=== PATIENT | female | born 2005 | race Caucasian/White ===

== ENCOUNTER → 2023-01-02 08:51 | Outpatient (BNVA) | payer OTHER, SELFPAY | PROVIDERS: Family Provider Family Medicine; PCP Family Medicine; Visit Provider Family Medicine | DX: Z34.90 Encounter for supervision of normal pregnancy, unspecified, unspecified trimester (principal) | CPT/HCPCS: 80307; 81000; 81025; 84144; 84443; 85025; 86592; 86762; 86803; 86850; 86900; 87086; 87340; 87491; 87591; 87624; 87661; 87806 ==

== ENCOUNTER → 2023-01-03 09:44 | Outpatient (BNVA) | payer OTHER, SELFPAY | PROVIDERS: Family Provider Family Medicine; PCP Family Medicine; Visit Provider Family Medicine | DX: Z34.90 Encounter for supervision of normal pregnancy, unspecified, unspecified trimester (principal) | CPT/HCPCS: 87491; 87512; 87591; 87661; 87799 ==

== ENCOUNTER 2023-01-12 12:20 | Outpatient (CLI) | payer OTHER, SELFPAY ==
--- NOTE | 2023-01-12 12:45 | US_ITS ---
WS: [email or web address] ULTRASOUND EARLY TECHNIQUE: Transabdominal sonography of the pelvis was performed. Followed by transvaginal sonography to better evaluate the uterus and ovaries. CLINICAL INFORMATION: Dating US in the next 1-2 weeks LMP: 11/11/2022 Beta hCG: Unknown. COMPARISON: None. FINDINGS: Closed cervix measures 3.9 cm UTERUS AND GESTATIONAL SAC Intrauterine gestations: Single live intrauterine gestation with pole and gestational sac. Estimated gestational age: 8w6d Estimated date of delivery 08/18/2023 Yolk sac: 0.5 cm. [place] rump length (CRL): 2.2 cm. heart motion: 167 BPM. Subchorionic hemorrhage: None. OVARIES Right ovary: Normal. Left ovary: Normal. FREE FLUID None. IMPRESSION: 1. Single live intrauterine with pole. 2. Cervix is long and closed. 3. Estimated gestational age; 8w6d 4. Estimated delivery 08/18/2023
== END 2023-01-12 12:21 | disposition home or self-care (01) ==
PROVIDERS: PCP Family Medicine; Visit Provider Family Medicine
DX: Z34.01 Encounter for supervision of normal first pregnancy, first trimester (principal); Z3A.08 8 weeks gestation of pregnancy
CPT/HCPCS: 76801

== ENCOUNTER 2023-04-06 08:55 | Outpatient (CLI) | payer OTHER, SELFPAY ==
--- NOTE | 2023-04-06 09:00 | US_ITS ---
WS: [email or web address] OBSTETRICAL ULTRASOUND COMPLETE HISTORY: Anatomy US - ABout 8 weeks from now COMPARISON: 01/12/2023 Single intrauterine gestation in breech presentation. Cervix is Closed and normal length. Cervical length is 4.2 cm. Normal amount of amniotic fluid surrounds the fetus. Placenta: Posterior, no previa or abruption. Placenta grade 1 Heart: 157 BPM. Four chambers are identified. RIGHT and LEFT outflow tracts are unremarkable. Anatomy: Intracranial structures and spine are normal. kidneys, stomach and urinary bladd er are unremarkable. Abdominal wall, three-vessel cord and cord insertion site are normal. 4 extremities are present. profile: Unremarkable. Gender: Not imaged. measurements: BPD = 4.3 cm = 19w1d; HC = 17.6 cm = 20w1d; AC = 14.2 cm = 19w4d; FL = 3.4 cm = 20w4d; EFW: 324 g. Biometry is internally concordant. AGA by ultrasound: 20w0d SARAH by ultrasound: 08/24/2023 IMPRESSION: 1. Single intrauterine gestation of 20w0d with an SARAH of 08/24/2023. Appropriate growth since the rst trimester ultrasound. 2. Unremarkable screening survey of anatomy.
== END 2023-04-06 08:56 | disposition home or self-care (01) ==
LOC: RAD 08:55
PROVIDERS: PCP Family Medicine; Visit Provider Family Medicine
DX: Z34.00 Encounter for supervision of normal first pregnancy, unspecified trimester (principal)
CPT/HCPCS: 76805

== ENCOUNTER 2023-04-24 20:32 | Outpatient (CLI) | payer OTHER, SELFPAY ==
[2023-04-24] VITALS (12 sets, daily range): BP systolic 93–123; BP diastolic 54–67; PULSE 80–93; RESP 15–18; TEMP 36.7; BMI 19.9
--- NOTE | 2023-04-24 20:58 | USR_ITS ---
PROCEDURE INFORMATION: Exam: US , Limited Exam date and time: 04/24/2023 11:24 PM Age: 17 years old Clinical indication: Other: Lt flank pain; Gestational age or lmp: 24w; ; Additional info: Left sided pain LABS AND CLINICAL REPORTS: Last menstrual period start date: 11/06/2022 Gestational age (Established): 24 w 1 d Estimated due date (Established): 08/13/2023 TECHNIQUE: Imaging protocol: Real-time ultrasound of the maternal uterus with image documentation. Exam focused on the clinical indication. COMPARISON: US OB >= 14 weeks fetus [id number] 04/06/2023 9:13 AM FINDINGS: Gestation: Single live intrauterine . heart rate: 144 bpm. heart rate 144 bpm. presentation: Breech presentation. Placenta: Placenta is posterior fundal. MATERNAL: Cervix: Cervical length measures 3.04 cm. US/US OB limited [id number] IMPRESSION: 1. Single live intrauterine . 2. heart rate 144 bpm. 3. Placenta is posterior fundal. 4. Breech presentation.
[2023-04-24 21:19] LABS: Add Urine Culture? No; Amorphous Sediment Urine 1+ /hpf; Bacteria Urine 2+ /hpf; Bilirubin Urine Neg (Negative); Blood Urine Neg (Negative); Glucose Urine UA Norm (Normal); Ketones Urine Negative (Negative); Leukocyte Esterase Urine Negative (Negative); Mucus Urine TRACE /hpf; Nitrate Urine Negative (Negative); Protein Urine Neg (Negative); RBC Urine RARE /hpf (0-2); Squamous Epithelial Cell Urine 15-25 /hpf (0-5); Urine Appearance Cloudy (CLEAR); Urine Color Yellow (Yellow); Urobilinogen Urine Neg (Negative); WBC Urine RARE /hpf (0-5); pH Urine 6 (5-7)
[2023-04-24] MEDS: lactated ringers 1,000 ML 999 ML IV (21:35)
--- NOTE | 2023-04-24 23:09 | USR_ITS ---
PROCEDURE INFORMATION: Exam: US Retroperitoneal; Complete; Kidneys and Bladder Exam date and time: 04/24/2023 11:12 PM Age: 17 years old Clinical indication: Abdominal pain; Flank; Left lower quadrant (llq); ; Additional info: Left flank pain TECHNIQUE: Imaging protocol: Real-time ultrasound of the retroperitoneum with image documentation. Complete exam focused on the kidneys and bladder. COMPARISON: US OB >= 14 weeks fetus [id number] 04/06/2023 9:13 AM FINDINGS: Right kidney: Mild right hydronephrosis and hydroureter without obstructing lesion. Left kidney: Normal. No stones. No hydronephrosis. Urinary bladder: Moderate amount of debris suspected in the urinary bladder. US/US renal BI* [id number] IMPRESSION: 1. Mild right hydronephrosis and hydroureter without obstructing lesion. 2. Moderate amount of debris suspected in the urinary bladder.
== END 2023-04-24 23:58 | disposition home or self-care (01) ==
LOC: OPOB 20:33 → OBGYN 20:33
PROVIDERS: PCP Family Medicine; Visit Provider Family Medicine
DX: O26.899 Other specified pregnancy related conditions, unspecified trimester (principal); Z3A.00 Weeks of gestation of pregnancy not specified; R10.9 Unspecified abdominal pain
CPT/HCPCS: 36415; 76770; 76815; 81001; 99211; J7120

== ENCOUNTER → 2023-05-04 09:45 | Outpatient (BNVA) | payer OTHER, SELFPAY | PROVIDERS: PCP Family Medicine; Visit Provider Family Medicine | DX: Z34.00 Encounter for supervision of normal first pregnancy, unspecified trimester (principal) | CPT/HCPCS: 82950 ==

== ENCOUNTER → 2023-06-24 14:16 | Outpatient (BNVA) | payer OTHER, SELFPAY | PROVIDERS: PCP Family Medicine; Visit Provider Family Medicine | DX: Z51.81 Encounter for therapeutic drug level monitoring (principal) | CPT/HCPCS: 85025 ==

== ENCOUNTER 2023-06-25 06:49 | Outpatient (CLI) | payer OTHER, SELFPAY ==
--- NOTE | 2023-06-25 07:00 | US_ITS ---
WS: [email or web address] LIMITED OBSTETRICAL ULTRASOUND HISTORY: Measuring small for gestational age COMPARISON: 01/12/2023, 04/06/2023 and 04/24/2023 Presentation: Vertex. Cervix: Closed and normal length. Placenta: Posterior, no previa or abruption. Grade: 2 HEART: FHR of 153 BPM. measurements: BPD = 8.1 cm = 32w3d; 26% HC = 29.4 cm = 32w3d; 7% AC = 25.9 cm = 30w1d; less than the second percent FL = 6.1 cm = 31w6d; 13% DEIDRE: 12.2 cm EFW: 1693 g; 25% AGA by ultrasound: 31w5d SARAH by ultrasound: 08/22/2023 IMPRESSION: 1. Single intrauterine gestation of 31 weeks 5 days with an EDC of 08/22/2023. [facility]. 2. Estimated weight at the 25th percentile for age. 3. The abdominal circumference is measuring less than the 2nd percentile suggesting growth res triction. The BPD measurement is low normal at the 26 percentile. 4. Grade 2 placenta.
== END 2023-06-25 06:50 | disposition home or self-care (01) ==
PROVIDERS: PCP Family Medicine; Visit Provider Family Medicine
DX: Z34.01 Encounter for supervision of normal first pregnancy, first trimester (principal); P05.10 Newborn small for gestational age, unspecified weight
CPT/HCPCS: 76815

== ENCOUNTER 2023-07-06 12:15 | Outpatient (CLI) | payer OTHER, SELFPAY ==
[2023-07-06 12:15] VITALS: BMI 23.6
[2023-07-06 12:32] VITALS: BP 111/57; PULSE 88
--- NOTE | 2023-07-06 12:34 | US_ITS ---
WS: [email or web address] LIMITED OBSTETRICAL ULTRASOUND HISTORY: IUGR COMPARISON: 01/12/2023, 06/25/2023 and 04/06/2023 Presentation: Cervix: Not visualized. Placenta: Fundal, no previa. Grade: 3 HEART: FHR of 133 BPM. measurements: BPD = 8.5 cm = 34w1d; 37% HC = 30.2 cm = 33w4d; 5% AC = 29.4 cm = 33w3d; 22% FL = 6.7 cm = 34w3d; 36% DEIDRE: 11.0 cm EFW: 2268 g; 44% AGA by ultrasound: 33w6d SARAH by ultrasound: 08/18/2023 UMBILICAL ARTERY DOPPLER Waveform analysis: Normal systolic and diastolic velocities. Diastolic velocity remains above the bas williams. Normal upstroke of waveform. SD ratios: SD ratio 2.9; near the 75th percentile. Resistivity indices: 0.66; near the 75th percentile. IMPRESSION: 1. Single intrauterine gestation of 33 weeks 6 days with an EDC of 08/18/2023. Measurements are conco rdant with the first trimester ultrasound. 2. Grade 3 placenta. 3. Estimated weight at the 44th percentile. 4. Abdominal circumference at the 22nd percentile which is improved since the prior study. 5. Normal umbilical artery Doppler evaluation.
== END 2023-07-06 14:25 | disposition home or self-care (01) ==
LOC: OPOB 12:21 → OBGYN 12:22
PROVIDERS: PCP Family Medicine; Visit Provider Family Medicine
DX: O36.5930 Maternal care for other known or suspected poor fetal growth, third trimester, not applicable or unspecified (principal); Z3A.33 33 weeks gestation of pregnancy
CPT/HCPCS: 59025; 76815; 76819; 76820

== ENCOUNTER 2023-07-09 09:19 | Outpatient (CLI) | payer OTHER, SELFPAY ==
[2023-07-09 09:15] VITALS: RESP 17; BMI 24.0
[2023-07-09 09:33] VITALS: BP 107/70; PULSE 83
[2023-07-09 09:49] VITALS: BP 116/73; PULSE 86
--- NOTE | 2023-07-09 10:01 | US_ITS ---
WS: [email or web address] BIOPHYSICAL PROFILE AMNIOTIC FLUID HISTORY: IUGR, DEIDRE COMPARISON: 07/06/2023 position: Vertex. Cardiac activity: 147 bpm. Cervix: closed. Placenta: Posterior and fundal, no previa or abruption. Placenta grade: 3 Parameters are as follows: Breathin Movement: 2 Tone: 2 Fluid volume: 2 Amniotic Fluid Index: 10.6 cm. IMPRESSION: 1. Biophysical profile score: 8/8. 2. Normal amniotic fluid. 3. Posterior grade 3 placenta.
[2023-07-09 10:03] VITALS: BP 109/69; PULSE 94
[2023-07-09 10:19] VITALS: BP 117/63; PULSE 88
[2023-07-09 10:33] VITALS: BP 108/58; PULSE 85
== END 2023-07-09 10:48 | disposition home or self-care (01) ==
LOC: OPOB 09:20 → OBGYN 09:20
PROVIDERS: PCP Family Medicine; Visit Provider Family Medicine
DX: O36.5990 Maternal care for other known or suspected poor fetal growth, unspecified trimester, not applicable or unspecified (principal); Z3A.00 Weeks of gestation of pregnancy not specified
CPT/HCPCS: 59025; 76819; 99211

== ENCOUNTER 2023-07-11 12:00 | Outpatient (CLI) | payer OTHER, SELFPAY ==
[2023-07-11 12:15] VITALS: BMI 23.9
[2023-07-11 12:16] VITALS: BP 111/77; PULSE 100
[2023-07-11 12:47] VITALS: BP 104/63; PULSE 90
[2023-07-11 13:19] VITALS: BP 108/71; PULSE 85
== END 2023-07-11 13:30 | disposition home or self-care (01) ==
LOC: OPOB 12:09 → OBGYN 12:10
PROVIDERS: PCP Family Medicine; Visit Provider Family Medicine
DX: O26.899 Other specified pregnancy related conditions, unspecified trimester (principal); Z3A.00 Weeks of gestation of pregnancy not specified; R10.2 Pelvic and perineal pain; M54.9 Dorsalgia, unspecified; R10.9 Unspecified abdominal pain
CPT/HCPCS: 59025; 99211

== ENCOUNTER 2023-07-13 06:29 | Outpatient (CLI) | payer OTHER, SELFPAY ==
--- NOTE | 2023-07-13 06:15 | US_ITS ---
WS: [email or web address] BIOPHYSICAL PROFILE AMNIOTIC FLUID HISTORY: Small for gestational age. COMPARISON: 07/09/2023, 07/06/2023 and 06/25/2023 position: Vertex. Cardiac activity: 165 bpm. Cervix: closed. Placenta: Fundal, no previa or abruption. Placenta grade: 3 Parameters are as follows: Breathin Movement: 2 Tone: 2 Fluid volume: 2 Amniotic Fluid Index: 9.5 cm UMBILICAL ARTERY DOPPLER Waveform analysis: Normal systolic and diastolic velocities. Diastolic velocity remains above the bas williams. Normal upstroke of waveform. SD ratios: SD ratios 2.7; between the 50th and 75th percentile Resistivity indices: 0.6; between the 50th and 75th percentile IMPRESSION: 1. Biophysical profile score: 8/8. 2. Normal SD ratio and resistivity indices. Note: growth evaluation was also obtained. These images are not adequate to accurately assess f etal growth pattern. Recommend additional imaging at no additional charge to better evaluate the biom etry to accurately assess growth. growth cannot be evaluated on this evaluation.
== END 2023-07-13 06:30 | disposition home or self-care (01) ==
PROVIDERS: PCP Family Medicine; Visit Provider Family Medicine
DX: O36.5990 Maternal care for other known or suspected poor fetal growth, unspecified trimester, not applicable or unspecified (principal); Z3A.00 Weeks of gestation of pregnancy not specified
CPT/HCPCS: 76815; 76819; 76820

== ENCOUNTER 2023-07-16 09:17 | Outpatient (CLI) | payer OTHER, SELFPAY ==
[2023-07-16 09:25] VITALS: BP 130/71; PULSE 89
[2023-07-16 09:46] VITALS: BP 124/82; PULSE 96
[2023-07-16 09:55] VITALS: BP 124/82; PULSE 96
== END 2023-07-16 09:55 | disposition home or self-care (01) ==
LOC: OPOB 09:17 → OBGYN 09:18
PROVIDERS: PCP Family Medicine; Visit Provider Family Medicine
DX: O36.5990 Maternal care for other known or suspected poor fetal growth, unspecified trimester, not applicable or unspecified (principal); Z3A.00 Weeks of gestation of pregnancy not specified
CPT/HCPCS: 59025; 87081; 99211

== ENCOUNTER 2023-07-20 08:27 | Outpatient (CLI) | payer OTHER, SELFPAY ==
--- NOTE | 2023-07-20 08:30 | US_ITS ---
WS: [email or web address] BIOPHYSICAL PROFILE AND LIMITED OB. UMBILICAL ARTERY DOPPLER HISTORY: wellbeing. COMPARISON: 07/13/2023, 06/25/2023, 01/12/2023 Presentation: Vertex. Cervix: Obscured by the head. Placenta: Fundal and posterior, no previa. Grade: 3 HEART: FHR of 139BPM. measurements: BPD = 8.7 cm = 35w1d; 21% HC = 31.3 cm = 35w1d; 3.7% AC = 30.8 cm = 34w5d; 13.9% FL = 6.9 cm = 35w2d; 16.0% DEIDRE: 10.0 cm EFW: 2552 g; 15%. AGA by ultrasound: 35 weeks 1 day SARAH by ultrasound: 08/23/2023 Additional Doppler evaluation of the cord. Normal systolic and diastolic velocities. Flow is above the baseline. The SD ratio of 2.0 is at the 2 5th percentile for age. The resistivity index for this age is between the 10th and 25th percentile. Biophysical profile: Parameters are as follows: Breathin Movement: 2 Tone: 2 Fluid volume: 2 IMPRESSION: 1. Biophysical profile score: 8/8. 2. Single intrauterine gestation of 35 weeks 1 day within an EDC of 08/23/2023. Since the examination of 07/06/2023 the fetus has increased in age by 9 days, not the expected 14. This may be in part due t o late gestational age and difficulty obtaining good measurements. 3. The biometry continues to be of concern with decreasing percentiles. The abdominal circumference i s now at the 13.9th percentile where on the most recent biometry at the 22nd percentile. 4. EFW at the 15th percentile. On the prior examination of 07/06/2023 the EFW was at the 44th percenti le. Fetus weight has increased by 284 g since 07/06/2023. 5. Normal amniotic fluid. 6. SD ratios remain normal and are decreasing with the aging fetus as expected. No reversal of flow. 7. Grade 3 placenta.
== END 2023-07-20 08:28 | disposition home or self-care (01) ==
LOC: RAD 08:28
PROVIDERS: PCP Family Medicine; Visit Provider Family Medicine
DX: O36.5930 Maternal care for other known or suspected poor fetal growth, third trimester, not applicable or unspecified (principal); Z3A.35 35 weeks gestation of pregnancy
CPT/HCPCS: 76815; 76819

== ENCOUNTER 2023-07-20 09:54 | Outpatient (CLI) | payer OTHER, SELFPAY ==
[2023-07-20 10:10] VITALS: BP 135/74; PULSE 84
[2023-07-20 10:14] VITALS: BMI 24.0
[2023-07-20 10:30] VITALS: BP 138/86; PULSE 106
== END 2023-07-20 10:40 | disposition home or self-care (01) ==
LOC: OPOB 09:56 → OBGYN 09:57
PROVIDERS: PCP Family Medicine; Visit Provider Family Medicine
DX: O36.5910 Maternal care for other known or suspected poor fetal growth, first trimester, not applicable or unspecified (principal); Z3A.00 Weeks of gestation of pregnancy not specified
CPT/HCPCS: 59025

== ENCOUNTER 2023-07-24 10:17 | Outpatient (CLI) | payer OTHER, SELFPAY ==
[2023-07-24 10:30] VITALS: BMI 24.0
[2023-07-24 10:37] VITALS: BP 139/79; PULSE 85
== END 2023-07-24 10:53 | disposition home or self-care (01) ==
LOC: OPOB 10:20 → OBGYN 10:21
PROVIDERS: PCP Family Medicine; Visit Provider Family Medicine
DX: O36.5910 Maternal care for other known or suspected poor fetal growth, first trimester, not applicable or unspecified (principal); Z3A.00 Weeks of gestation of pregnancy not specified
CPT/HCPCS: 59025

== ENCOUNTER 2023-07-27 06:16 | Outpatient (CLI) | payer OTHER, SELFPAY ==
--- NOTE | 2023-07-27 06:30 | US_ITS ---
WS: [email or web address] BIOPHYSICAL PROFILE AND LIMITED OB. HISTORY: DEIDRE, BPP, Pulsatility index of umbilical artery COMPARISON: 07/20/2023 Presentation: Vertex. Cervix: Closed and normal length. Placenta: Posterior and fundal Grade: 3 HEART: FHR of 150BPM. measurements: BPD = 8.9 cm = 35w6d; 24% HC = 31.6 cm = 35w4d; less than the third percent AC = 31.5 cm = 35w3d; 11% FL = 6.8 cm = 35w1d; 5% DEIDRE: 11.9 centimeters EFW: 2661.2g; 11% AGA by ultrasound: 35 weeks 4 days SARAH by ultrasound: 08/27/2023 Biophysical profile: Parameters are as follows: Breathin Movement: 2 Tone: 2 Fluid volume: 2 UMBILICAL ARTERY DOPPLER Waveform analysis: Normal systolic and diastolic velocities. Diastolic velocity remains above the bas williams. Normal upstroke of waveform. SD ratios: SD ratios; 1.7, just above the 10th percentile. There is an additional SD ratio of 3.3 whi ch is high indicating this may be a small for gestational fetus. There is no reversal of diastolic ve locity or absence of diastolic velocity at this time. Resistivity indices: 0.7, 90th percentile. IMPRESSION: 1. Biophysical profile score: 8/8. 2. Single intrauterine gestation of 35 weeks 4 days with an EDC of 08/27/2023. Fetus continues to joe sure small as on the prior examinations. Would not expect a significant change in measurements at this late gestational age with this short interval follow-up. 3. Estimated weight at the 11th percentile. 4. There is an elevated SD ratio involving a segment of the umbilical artery. This can be seen with a dverse outcomes and related to a small for gestational fetus. At this time there is continued normal diastolic velocity. The elevated SD ratio is new since 07/20/2023. 5. Normal amniotic fluid.
== END 2023-07-27 06:17 | disposition home or self-care (01) ==
LOC: RAD 06:17
PROVIDERS: PCP Family Medicine; Visit Provider Family Medicine
DX: O36.5930 Maternal care for other known or suspected poor fetal growth, third trimester, not applicable or unspecified (principal); Z3A.32 32 weeks gestation of pregnancy
CPT/HCPCS: 76815; 76819; 76820

== ENCOUNTER 2023-07-27 07:50 | Outpatient (CLI) | payer OTHER, SELFPAY ==
[2023-07-27 08:00] VITALS: BMI 24.5
[2023-07-27 08:17] VITALS: BP 122/73; PULSE 82
[2023-07-27 08:37] VITALS: BP 114/67; PULSE 77
== END 2023-07-27 08:45 | disposition home or self-care (01) ==
LOC: OPOB 07:57 → OBGYN 07:59
PROVIDERS: PCP Family Medicine; Visit Provider Family Medicine
DX: O36.5990 Maternal care for other known or suspected poor fetal growth, unspecified trimester, not applicable or unspecified (principal); Z3A.00 Weeks of gestation of pregnancy not specified
CPT/HCPCS: 59025

== ENCOUNTER 2023-07-30 08:53 | Outpatient (CLI) | payer OTHER, SELFPAY ==
[2023-07-30 09:00] VITALS: BMI 24.7
[2023-07-30 09:04] VITALS: BP 119/68; PULSE 91
== END 2023-07-30 09:47 ==
LOC: OPOB 09:01 → OBGYN 09:01
PROVIDERS: PCP Family Medicine; Visit Provider Family Medicine
DX: O36.5990 Maternal care for other known or suspected poor fetal growth, unspecified trimester, not applicable or unspecified (principal); Z3A.00 Weeks of gestation of pregnancy not specified
CPT/HCPCS: 59025; 83986; 99211

== ENCOUNTER 2023-07-30 21:30 | Outpatient (CLI) | payer OTHER, SELFPAY ==
[2023-07-30 21:40] VITALS: BMI 24.5
[2023-07-30 21:49] VITALS: BP 127/92; PULSE 83; TEMP 35.6
[2023-07-30 22:24] VITALS: BP 119/68; PULSE 89
[2023-07-30 22:38] VITALS: BP 117/59; PULSE 90
[2023-07-30 22:40] LABS: Nitrazine Paper, PH Inconclusive
[2023-07-30 22:45] LABS: Actim Prom Negative
[2023-07-30 22:53] VITALS: BP 110/70; PULSE 90
[2023-07-30 23:35] VITALS: BP 130/63; PULSE 80
[2023-07-31 00:25] VITALS: BP 114/65; PULSE 86
[2023-07-31 00:26] VITALS: TEMP 36
== END 2023-07-31 00:26 | disposition home or self-care (01) ==
LOC: OPOB 21:45 → OBGYN 21:46
PROVIDERS: PCP Family Medicine; Visit Provider Family Medicine
DX: O26.899 Other specified pregnancy related conditions, unspecified trimester (principal); Z3A.00 Weeks of gestation of pregnancy not specified; R10.9 Unspecified abdominal pain
CPT/HCPCS: 59025; 83986; 84112; 99211

== ENCOUNTER 2023-07-31 18:26 | Inpatient (IN) | payer OTHER, SELFPAY ==
[2023-07-31] VITALS (10 sets, daily range): BP systolic 104–123; BP diastolic 61–78; PULSE 68–102; TEMP 36.1; BMI 24.3
[2023-07-31 18:36] LABS: Basophils # 0.1 10^3/uL (0.0-0.1); Basophils % 0.4 %; Eosinophils # 0.1 10^3/uL (0.0-0.8); Eosinophils % 0.6 %; Hematocrit 37.8 % (36-47); Lymphocytes # 2.7 10^3/uL (1.5-6.5); Lymphocytes % 23.1 %; Mean Corpuscular HGB Conc 32.3 g/dL (30-55); Mean Corpuscular Hemoglobin 28.4 pg (27-33); Mean Corpuscular Volume 88.1 fl (85-98); Mean Platelet Volume 8.9 fL (7.4-10.4); Monocytes # 0.9 10^3/uL (0.2-0.9); Neutrophils # 7.89 10^3/uL (1.8-8.0); Neutrophils % 66.9 %; Nucleated Red Blood Cells % 0 %; Platelet Count 371 10^3/cmm (157-399); Red Blood Count 4.29 10^6/uL (3.85-5.65); Red Cell Distribution Width 16.4 % (12.1-15.1); White Blood Count 11.79 10^3/uL (4.5-13.0)
[2023-07-31] MEDS: miSOPROStol 100 mcg tablet 25 MCG VAGINAL ×2 (18:38→23:37)
--- NOTE | 2023-07-31 20:38 | P.HP_ITS ---
Providers/Chief Complaint 2 Admitting Physician: Rikki Mccauley MD Primary Care Provider: Rikki Mccauley MD Chief Complaint: Induction History of Present Illness Taylor Cobos is a 17 year old @ 38.1 wks by LMP c/w 8 wk US. Preg c/b teen , h/o syncope under stressful situations (blood draws), likely passed kidney stone at 24 weeks, supraumbilical hernia, growth restriction with increasing SD ratio and resistive index in the 95th percentile The patient presented to labor and delivery for a scheduled secondary to growth restriction with increasing SD ratio and resistive index in the umbilical artery flow. The patient has been measuring small for a number of weeks and we have been following growth. Growth has been gradually decreasing during this time and the biophysical profiles and NSTs have been normal, however the resistive index and SD ratios came back at a high risk in the 95th percentile this week, so for this reason we decided to proceed with induction of labor. The patient was 1 cm dilated and 25% effaced at a +1 station upon presentation. The patient feels well at this time. She denies any fever, cough, shortness of breath, chest pain, nausea, vomiting, diarrhea, constipation, leakage of fluid, vaginal bleeding. Medications/Allergies Home Medications Medication Instructions Recorded Confirmed Last Taken Type prenat.vits,eloina,nuh-kcwz-zndud 1 tab PO DAILY 01/02/23 07/30/23 07/30/23 19:00 History ferrous sulfate 325 mg (65 mg 325 mg PO DAILY #30 tabs 06/25/23 07/30/23 07/30/23 19:00 Rx iron) tablet Allergies Allergy/AdvReac Type Severity Reaction Status Date / Time guaifenesin Allergy Intermediate ADR-rash Verified 07/30/23 22:29 [From Robitussin A-C] PFSH Acute 2 PFSH: Medical History Healthy adult Surgical History No pertinent past surgical history Family History Mother Asthma PCOS (polycystic ovarian syndrome) Allergy to alpha-gal Father Hypertension Grandfather Kidney stones Social History Smoking and tobacco/nicotine status: never used tobacco/nicotine Alcohol intake: never Substance/Drug Use: never Household members: family Current occupation: Works at the [employer] Female Reproductive History: : 1 Vitals/I&O/Wt Last Vital Signs Pulse 88 07/31/23 19:38 BP 118/69 07/31/23 19:38 O2 Del Method Room Air 07/31/23 19:37 Weight last 48 hrs Weight 142 lb Physical Exam 2 Narrative: General: Alert and oriented x3 Eyes: Pupils equal round and reactive to light and accommodation Mouth: Mucous membranes moist, pharynx non-erythematous Cardiac: Regular rate and rhythm without murmurs Lungs: Clear to auscultation bilaterally without wheezes, crackles or rhonchi Abdomen: Soft, non-tender, fundus consistent with gestational age Extremities: Trace edema in the bilateral lower extremities Data 07/31/23 18:00 A&P Assessment and plan (1) Supervision of normal intrauterine in primigravida: heart tones are a category 1 with heart tones in the mid 130s with moderate variability good accelerations. The patient was not linda significantly upon presentation. She will be started on Cytotec for induction of labor. Our goal will be that we can start IV Pitocin by morning. She may have IV pain management as needed. Labor epidural when she gets to 3 cm or beyond. She is GBS negative. I discussed the reasoning for induction with the patient, her significant other and family members and all questions were answered. The patient and her significant other are in agreement with current plan of care. Proceed with induction of labor as scheduled. Qualifiers: Trimester: third trimester Qualified Code(s): Z34.03 - Encounter for supervision of normal first , third trimester (2) growth restriction: Attestations 2 Medical Necessity Statement*: The patient will be here for greater than 2 midnights due to routine intrapartum and management of labor and delivery. Coding Level of Care Code Acute Code for Chg Fwd Diagnoses Encounter for supervision of normal first in third trimester Z34.03 Trimester: third trimester growth restriction
[2023-08-01] VITALS (23 sets, daily range): BP systolic 109–124; BP diastolic 56–76; PULSE 66–106; RESP 15–20; TEMP 30.4–36.8; O2SAT 97–100; BMI 24.3
[2023-08-01] MEDS: fentaNYL 50 mcg/mL INJ 2mL IVP ×3 (03:29→09:22)
--- NOTE | 2023-08-01 09:18 | P.PN_ITS ---
Subjective 2 Subjective: The patient has done well overnight. She received 2 doses of Cytotec. Her contractions were every 1 to 3 minutes. She has changed to 4 cm dilation. She has been doing well with the contractions but they are getting more painful. Vitals/I&O/Wt Last Vital Signs Temp 97.5 F L 08/01/23 01:38 Pulse 67 08/01/23 07:33 Resp 16 08/01/23 07:27 BP 112/61 08/01/23 07:33 O2 Del Method Room Air 08/01/23 03:57 Weight last 48 hrs Weight 142 lb Weight 142 lb Physical Exam 2 Narrative: General: Alert and oriented x3 Cardiac: Regular rate and rhythm without murmurs Lungs: Clear to auscultation bilaterally without wheezes, crackles or rhonchi Abdomen: Soft, non-tender, fundus consistent with gestational age Extremities: Trace edema in the bilateral lower extremities : Cervix 4/80/-1/well applied Data 07/31/23 18:00 A&P Assessment and plan (1) Supervision of normal intrauterine in primigravida: The patient is doing well at this time. heart tones are in the mid 140s with moderate ability and good accelerations with a category 1 tracing. She is linda every 2 to 3 minutes on her own. She had made little warp changer the last 6 hours, so AROM was performed to help augment labor as the head was well applied. Clear fluid was noted. Currently the patient is doing well. We will continue with routine intrapartum management. She is okay to get a laboring epidural if she would like. Qualifiers: Trimester: third trimester Qualified Code(s): Z34.03 - Encounter for supervision of normal first , third trimester Attestations 2 Medical Necessity Statement*: The patient continues to need inpatient care and her stay will cross 2 midnights. Coding Level of Care Code Acute Code for Chg Fwd Diagnoses Encounter for supervision of normal first in third trimester Z34.03 Trimester: third trimester
[2023-08-01] MEDS: ondansetron 2 mg/ML SDV 2 mL 4 MG IVP (10:05)
[2023-08-01] MEDS: oxytocin 30 UNIT/500 ML BAG 600 UNIT IV (10:48)
--- NOTE | 2023-08-01 11:08 | P.PCNOB_ITS ---
Delivery Note: Date of delivery: August 01, 2023 Pre-delivery diagnoses: 1. Intrauterine at 38.2 weeks gestation 2. growth restriction with border line SD ratio on resistive index 3. Kidney stone at 24 weeks 4. Supraumbilical hernia Post-delivery diagnoses: 1. Intrauterine status post s pontaneous vaginal delivery at 38.2 weeks gestation 2. growth restriction with border line SD ratio on resistive index 3. Kidney stone at 24 weeks 4. Supraumbilical hernia 5. Delivery of healthy infant female we ighing 5 pounds 13 ounces with Apgars of 8 and 9 Procedure: Spontaneous vaginal delivery Delivering Physician: Rikki Mccauley MD Estimated blood loss (mL): 100 Findings: 1. Healthy infant female weighing 5 cristo nds 13 ounces with Apgars of 8 and 9 2. Intact placenta with central umbilic al cord insertion site. Post Delivery Diagnoses: Supervision of normal intrauterine in primigravida: Qualifiers: Trimester: third trimester Qualified Code(s): Z34.03 - Encounter for supervision of normal first , third trimester Pre-Delivery Course: Taylor Cobos is a 17 year old G1 now P1 @ 38.2 wks by LMP c/w 8 wk US. Preg c/b teen , h/o syncope under stressful situations (blood draws), likely passed kidney stone at 24 weeks, supraumbilical hernia, growth restriction with increasing SD ratio and resistive index in the 95th percentile. The patient presented to labor and delivery for a scheduled secondary to growth restriction with increasing SD ratio and resistive index in the umbilical artery flow. The patient has been measuring small for a number of we eks and we have been following growth. Growth has been gradually decreasing during this time and the biophysical profiles and NSTs have been normal, however the resistive index and SD ratios came back at a high risk in the 95th percentile this week, so for this reason we decided to proceed with induction of labor. The patient was 1 cm dilated and 25% effaced at a +1 station upon presentation. The patient was given Cytotec on the evening of 07/31/2023. She received 2 doses and contracted well following this. She changed to 3 cm dilation and was linda every 1 to 2 minutes by the morning of 08/01/2023. She had not made any significant change for a few hours, so AROM was performed at 9:10 AM on 08/01/2023. Fluid was noted to be clear. The patient then made rapid change and was complete by 10:20 AM on 08/01/2023. Delivery: The patient began pushing at 10:37 AM on 08/01/2023. The patient pushed well and the infant delivered in the OA position at 10:44 AM on 08/01/2023. The left shoulder was the anterior shoulder and it delivered with gentle downward pressure. The rest the delivered without complication. The 's mo uth and nose were bulb suction by myself and the infant was crying very shortly after delivery. The was placed on the mother's chest where the nurses were waiting to care for her. The 's cord was clamped by myself and cut by her grandmother after approximately 1 minute. Cord blood was obtained. The cord was then drained of blood and traction was placed on the umbilical cord. Uterine massage was carried out and the placenta delivered without complication at 10:48 AM on 07/03/2023. The placenta was noted to be intact with a central umbilical cord insertion site and scattered calcifications. The cord was noted to be thick with a good amount of [place]'s jelly. The uterus was massaged and bleeding slowed down well. The cervix was inspected and no lacerations were noted. The vaginal wall was inspected and a first-degree laceration was noted on the right upper vaginal wall leading up superiorly near the clitoral region. This was not bleeding and no suturing was needed. Currently both the mother and infant are doing well. History History History 1 Term 1 0 Miscarriages/Ectopic 0 Living Children 1 Past Pregnancies Del. Date GA/Weeks Outcome Route Wt Inf Gender Labor Lgth Comp. Anesth esia Location 08/01/23 38 live - full term Vaginal 5 lb 13 oz Female 14 hr [facility] Delivery Date: 08/01/23 Last Updated by: Rikki Mccauley MD Induced for growth restriction with borderline S/D ratio and Resistive index. Kidney stone during . Progressed quickly from 4cm to delivered in 1.5 hrs. A&P Assessment and plan (1) Supervision of normal intrauterine in primigravida: Qualifiers: Trimester: third trimester Qualified Code(s): Z34.03 - Encounter for supervision of normal first , third trimester Coding Level of Care Code Acute Code for Chg Fwd Diagnoses Encounter for supervision of normal first in third trimester Z34.03 Trimester: third trimester
[2023-08-01] MEDS: acetaminophen 325 mg Tablet 650 MG PO (11:22)
[2023-08-01] MEDS: benzocaine-menthol 78 gm Canister 1 SPRAY TOPICAL (13:07)
[2023-08-01] MEDS: ibuprofen 800 mg tablet PO ×2 (15:47→21:27)
[2023-08-01] MEDS: docusate sodium 100 mg Capsule PO (21:27)
[2023-08-02 03:49] LABS: Hematocrit 34.2 % (36-47); Mean Corpuscular HGB Conc 32.2 g/dL (30-55); Mean Corpuscular Hemoglobin 28.6 pg (27-33); Mean Corpuscular Volume 89.1 fl (85-98); Platelet Count 320 10^3/cmm (157-399); Red Blood Count 3.84 10^6/uL (3.85-5.65); Red Cell Distribution Width 16.8 % (12.1-15.1)
[2023-08-02 04:15] VITALS: BP 118/75; PULSE 91; RESP 16; TEMP 36.7
[2023-08-02] MEDS: prenatal vitamin Capsule 1 CAP PO (09:00)
[2023-08-02] MEDS: docusate sodium 100 mg Capsule PO (09:00)
[2023-08-02] MEDS: ibuprofen 800 mg tablet PO (09:00)
--- NOTE | 2023-08-02 10:22 | P.DS_ITS ---
Discharge Providers Date of Admission: 07/31/23 18:26 Date of Discharge: August 02, 2023 Attending Provider at Admission: Rikki Mccauley MD Attending Provider at Discharge: Rikki Mccauley MD Primary Care Provider: Rikki Mccauley MD Diagnoses at Discharge Discharge Diagnosis (1) Supervision of normal intrauterine in primigravida: Status: Resolved Qualifiers: Trimester: third trimester Qualified Code(s): Z34.03 - Encounter for supervision of normal first , third trimester Other Information Additional DC diagnoses/information: 1. Intrauterine status post spontaneous vaginal delivery at 38.2 weeks gestation 2. growth restriction with borderline SD ratio on resistive index 3. Kidney stone at 24 weeks 4. Supraumbilical hernia 5. Delivery of healthy female weighing 5 pounds 13 ounces with Apgars of 8 and 9 Reason for Visit Reason for Visit: Induction Brief History: Taylor Cobos is a 17 year old G1 now P1 @ 38.2 wks by LMP c/w 8 wk US. Preg c/b teen , h/o syncope under stressful situations (blood draws), likely passed kidney stone at 24 weeks, supraumbilical hernia, growth restriction with increasing SD ratio and resistive index in the 95th percentile. The patient presented to labor and delivery for a scheduled induction secondary to growth restriction with increasing SD ratio and resistive index in the umbilical artery flow. The patient has been measuring small for a number of weeks and we have been following growth. Growth has been gradually decreasing during this time and the biophysical profiles and NSTs have been normal, however the resistive index and SD ratios came back at a high risk in the 95th percentile this week, so for this reason we decided to proceed with induction of labor. The patient was 1 cm dilated and 25% effaced at a +1 station upon presentation. Hospital Course Hospital Course The patient was given Cytotec on the evening of 07/31/2023. She received 2 doses and contracted well following this. She changed to 3 cm dilation and was linda every 1 to 2 minutes by the morning of 08/01/2023. She had not made any significant change for a few hours, so AROM was performed at 9:10 AM on 08/01/2023. Fluid was noted to be clear. The patient then made rapid change and was complete by 10:20 AM on 08/01/2023. The patient delivered at 10:44 AM on 08/01/2023. The delivery was uncomplicated. She did not have any significant bleeding. No suturing was needed. The patient has done well . She is ambulating, voiding, passing gas and tolerating food by mouth. Her pain is well-controlled. We discussed routine discharge instructions. All questions were answered. The patient is in agreement with discharge home today. She will follow-up with me at 6 weeks or sooner if needed. Physical Exam Narrative: General: Alert and oriented x3 Cardiac: Regular rate and rhythm without murmurs Lungs: Clear to auscultation bilaterally without wheezes, crackles or rhonchi Abdomen: Soft, mild tenderness over uterus. The uterus is firm and 2 cm below the umbilicus. Extremities: Trace edema in the bilateral lower extremities Discharge Data Studies Completed and Pending Laboratory Results WBC 19.40 10^3/uL (4.5-13.0) H 08/02/23 03:15 RBC 3.84 10^6/uL (3.85-5.65) L 08/02/23 03:15 Hgb 11.00 g/dL (12.4-14.8) L 08/02/23 03:15 Hct 34.2 % (36-47) L 08/02/23 03:15 MCV 89.1 fl (85-98) 08/02/23 03:15 MCH 28.6 pg (27-33) 08/02/23 03:15 MCHC 32.2 g/dL (30-55) 08/02/23 03:15 RDW 16.8 % (12.1-15.1) H 08/02/23 03:15 Plt Count 320 10^3/cmm (157-399) 08/02/23 03:15 MPV 9.0 fL (7.4-10.4) 08/02/23 03:15 Neut % (Auto) 66.9 % 07/31/23 18:00 Lymph % (Auto) 23.1 % 07/31/23 18:00 [place] % (Auto) 8.0 % 07/31/23 18:00 Eos % (Auto) 0.6 % 07/31/23 18:00 Baso % (Auto) 0.4 % 07/31/23 18:00 Neut # (Auto) 7.89 10^3/uL (1.8-8.0) 07/31/23 18:00 Lymph # (Auto) 2.7 10^3/uL (1.5-6.5) 07/31/23 18:00 [place] # (Auto) 0.9 10^3/uL (0.2-0.9) 07/31/23 18:00 Eos # (Auto) 0.1 10^3/uL (0.0-0.8) 07/31/23 18:00 Baso # (Auto) 0.1 10^3/uL (0.0-0.1) 07/31/23 18:00 Nucleated RBC % (auto) 0 % 07/31/23 18:00 Nucleated RBCs # 0.0 /100WBC 07/31/23 18:00 Blood Type O Positive 07/31/23 18:00 Rho(D) Type Rh positive 07/31/23 18:00 Antibody Screen Negative 07/31/23 18:00 Vitals Last Vital Signs Temp 98.1 F 08/02/23 04:15 Pulse 91 08/02/23 04:15 Resp 16 08/02/23 04:15 BP 118/75 08/02/23 04:15 Pulse Ox 98 08/01/23 21:28 O2 Del Method Room Air 08/01/23 21:28 Discharge Plan Discharge Patient Disposition: Home Condition: Good Prescriptions: New ibuprofen 800 mg Tablet 800 mg PO TID Qty: 30 0RF Continued prenat.vits,eloina,[id number] Tablet 1 tab PO DAILY ferrous sulfate 325 mg (65 mg iron) tablet 325 mg PO DAILY Qty: 30 3RF Discharge Orders: Discharge Order (Routine); Ordered 08/02/23 Ordered By: Rikki Mccauley Referrals: Rikki Mccauley MD [Primary Care Provider] - 6 Weeks Discharge Diet: Regular Patient Instructions: Ibuprofen (By mouth), Depression (DC), Preeclampsia and Eclampsia After Delivery (GEN), Hemorrhage (DC), OB Discharge Report, OB Food/Drug Interaction Guide, Opioid Safety, OB Home Care, OB [facility], Abnormal Bleeding Activity Restrictions/Additional Instructions: Nothing per vagina for 6 weeks. I would recommend showers instead of baths for the first 6 weeks. If you have any concerns prior to your 6-week appointment, please contact Dr. Mccauley's office right away. Discharge Attestations Time Spent in Discharge Care*: greater than 30 min Quality Metrics Clinical Quality Measures [ No reported AMI, CVA or VTE this stay] Coding Level of Care Code Acute Code for Chg Fwd Diagnoses Encounter for supervision of normal first in third trimester Z34.03 Trimester: third trimester
[2023-08-02 11:00] VITALS: BP 101/65; PULSE 89; RESP 16; TEMP 36.8
[2023-08-02 15:09] VITALS: BP 108/60; PULSE 86; RESP 16; TEMP 36.7; O2SAT 100
[2023-08-02 15:10] VITALS: BP 108/60; PULSE 86; RESP 16; TEMP 36.7; O2SAT 100
== END 2023-08-02 15:22 | disposition home or self-care (01) | DRG 807 ==
LOC: OPOB 18:26 → OBGYN 18:26
PROVIDERS: Admitting Provider Family Medicine; PCP Family Medicine; Visit Provider Family Medicine
DX: O36.5930 Maternal care for other known or suspected poor fetal growth, third trimester, not applicable or unspecified (principal); Z37.0 Single live birth; Z3A.38 38 weeks gestation of pregnancy; K42.9 Umbilical hernia without obstruction or gangrene
CPT/HCPCS: 36415; 59025; 59409; 85025; 85027; 86850; 86900; 96374; 96376; 99211; J2405; J2590; J3010

== ENCOUNTER 2024-05-05 17:33 | Emergency (ER) | payer OTHER, SELFPAY ==
[2024-05-05 17:49] VITALS: BP 52/28; PULSE 124; TEMP 36.5; O2SAT 100
[2024-05-05 18:14] VITALS: BP 90/55; PULSE 100; O2SAT 100
[2024-05-05] MEDS: ondansetron 2 mg/ML SDV 2 mL 4 MG IVP (18:26)
[2024-05-05 18:31] LABS: Bilirubin Urine Negative (Negative); Blood Urine Negative (Negative); Glucose Urine UA Negative (Normal); HCG Qualitative Urine. Negative (Negative); Ketones Urine 1+ (Negative); Leukocyte Esterase Urine Negative (Negative); Nitrate Urine Negative (Negative); Protein Urine Negative (Negative); Specific Gravity, Urine 1.021 (1.005-1.030); Urine Appearance Clear (CLEAR); Urine Color Yellow (Yellow); pH Urine 5.5 (5-7)
[2024-05-05 18:33] LABS: Add Urine Microscopic? YES; Bacteria Urine None Seen /hpf; Hyaline Casts Urine 1.65 /lpf; RBC Urine 0-2 /hpf (0-2); Squamous Epithelial Cell Urine 0-5 /hpf (0-5); WBC Urine 0-5 /hpf (0-5)
[2024-05-05 18:43] LABS: Basophils % 0.2 %; Eosinophils # 0.2 10^3/uL (0.0-0.8); Eosinophils % 1.2 %; Hematocrit 43.9 % (36-47); Lymphocytes % 7.2 %; Mean Corpuscular HGB Conc 33.3 g/dL (30-55); Mean Corpuscular Hemoglobin 29.5 pg (27-33); Mean Corpuscular Volume 88.7 fl (85-98); Mean Platelet Volume 8.5 fL (7.4-10.4); Monocytes # 0.6 10^3/uL (0.2-0.9); Monocytes % 3.9 %; Neutrophils # 12.21 10^3/uL (1.8-8.0); Neutrophils % 87.2 %; Nucleated Red Blood Cells % 0 %; Platelet Count 334 10^3/cmm (157-399); Red Blood Count 4.95 10^6/uL (3.85-5.65); Red Cell Distribution Width 11.9 % (12.1-15.1); White Blood Count 14.01 10^3/uL (4.5-13.0)
[2024-05-05 19:05] LABS: Albumin Level 4.7 g/dL (3.5-5.2); Alkaline Phosphatase 77 U/L (35-105); Blood Urea Nitrogen 10 mg/dL (6-20); Calcium 9.5 mg/dL (8.5-10.5); Carbon Dioxide 21 mmol/L (22-29); Chloride 103 mmol/L (98-107); Creatinine Clr Calc Pharmacy 92.8186; Globulin 3.3 g/dL (1.3-4.6); Glomerular Filtration Rate 91.4 mL/min (90-130); Glucose 135 mg/dL (65-115); Lipase 20 U/L (13-60); Osmolality Calculated 287 mOsm/kg (285-295); Sodium 138 mmol/L (136-145); Total Bilirubin 0.9 mg/dL (0.15-1.2)
[2024-05-05 19:10] LABS: Alanine Aminotransferase 12 U/L (0-33); Anion Gap 18.4 (5-19); Aspartate Amino Transferase 23 U/L (0-32); Potassium 4.4 mmol/L (3.5-5.1)
--- NOTE | 2024-05-05 19:28 | ED_ITS ---
HPI - Nausea/Vomiting/Diarrhea 2 General: Chief complaint: Nausea/Vomiting/Diarrhea Stated complaint: NVD Time Seen by Provider: 05/05/24 18:17 History of Present Illness: Patient presents to the ER with complaint of nausea vomiting and diarrhea. This has been going on for 1 day. Patient states she has had some mild right lower quadrant abdominal pain for the last 2 to 3 days. Patient is never had any abdominal surgery. Patient denies fever or chills. Dysuria. Patient does have a history of a kidney stone in the past but does not remember what it felt like. Patient's does not remember eating any known bad food or any sick contacts. Does not have any chronic problems like this. Related Data Home Medications Medication Instructions Recorded Confirmed prenat.vits,eloina,[id number] 1 tab PO DAILY 01/02/23 09/14/23 Previous Rx's Medication Instructions Recorded levonorgestrel 0.15 mg-ethinyl See Rx Instructions PO .COMPLEX 12/08/23 estradiol 0.03 mg tablet (Kurvelo #84 tabs (28)) ciprofloxacin HCl 500 mg tablet 500 mg PO Q12H #20 tabs 05/05/24 metronidazole 500 mg tablet 500 mg PO Q8H #30 tabs 05/05/24 ondansetron HCl 4 mg tablet 4 mg PO Q8H PRN nausea and 05/05/24 vomiting #14 tabs Allergies Allergy/AdvReac Type Severity Reaction Status Date / Time guaifenesin Allergy Intermediate ADR-rash Verified 05/05/24 17:57 [From Robitussin A-C] Review of Systems 2 General: Reports: 10 or more systems reviewed and unremarkable except in HPI and below PFSH ED 2 PFSH: Medical History Healthy adult Surgical History No pertinent past surgical history Family History Mother Asthma PCOS (polycystic ovarian syndrome) Allergy to alpha-gal Father Hypertension Grandfather Kidney stones Social History Smoking and tobacco/nicotine status: never used tobacco/nicotine Alcohol intake: never Substance/Drug Use: never Household members: family Current occupation: Works at the [employer] Physical Exam 2 Const: COMMON NORMALS: no acute distress, average body habitus, patient oriented x3, no limitations, healthy appearing, alert and well nourished HENMT: COMMON NORMALS: normocephalic, atraumatic, hearing grossly normal bilaterally, external ears normal, Normal external nose present and moist oral mucous membranes HEAD & SCALP: normocephalic and atraumatic NOSE: Normal external nose present EXTERNAL EAR: Yes external ears normal Neck/C-Spine: COMMON NORMALS: no JVD Chest: COMMONS NORMALS: normal inspection of the chest and normal palpation of entire chest wall Resp: COMMON NORMALS: normal respiratory effort, No retractions, No use of accessory muscles and clear to auscultation bilaterally AUSCULTATION: clear to auscultation bilaterally Cardio: COMMON NORMALS: no JVD, regular rate, regular rhythm, S1 normal heart sound present, S2 normal heart sound present, No gallops present (Cardio), No clicks present (Cardio) and No murmurs present (Cardio) RATE: regular rate RHYTHM: regular rhythm HEART SOUNDS: S1 normal heart sound present and S2 normal heart sound present GI: COMMON NORMALS: Normal to inspection, nondistended, normoactive bowel sounds present, Soft to palpation, non-tender, No hepatosplenomegaly present and no masses PALPATION: Yes Soft to palpation and Yes No hepatosplenomegaly present Neuro: COMMON NORMALS: patient oriented x3 SENSORIUM/ORIENTATION: Yes alert Course 2 Vital Signs: Vital signs: Vital Signs Temperature 97.7 F 05/05/24 17:49 Pulse Rate 121 H 05/05/24 20:19 Respiratory Rate 26 H 05/05/24 20:19 Blood Pressure 99/67 05/05/24 20:19 Pulse Oximetry 100 05/05/24 20:19 Oxygen Delivery Me thod Room Air 05/05/24 20:19 MDM - Nausea/Vomiting/Diarrhea Medical Decision Making Patient lab work white blood cell count slightly elevated 14, C. difficile negative, stool lactoferrin and fecal occult blood positive. Patient probably has not bacterial overgrowth, we will treat with Cipro and Flagyl, patient is feeling much better and is able to keep food and drink down. Medical Records I reviewed the patient's medical records. Lab Data I reviewed the patient's lab results. 05/05/24 18:20 05/05/24 18:20 Laboratory Results WBC 14.01 10^3/uL (4.5-13.0) H 05/05/24 18:20 RBC 4.95 10^6/uL (3.85-5.65) 05/05/24 18:20 Hgb 14.60 g/dL (12.4-14.8) 05/05/24 18:20 Hct 43.9 % (36-47) 05/05/24 18:20 MCV 88.7 fl (85-98) 05/05/24 18:20 MCH 29.5 pg (27-33) 05/05/24 18:20 MCHC 33.3 g/dL (30-55) 05/05/24 18:20 RDW 11.9 % (12.1-15.1) L 05/05/24 18:20 Plt Count 334 10^3/cmm (157-399) 05/05/24 18:20 MPV 8.5 fL (7.4-10.4) 05/05/24 18:20 Neut % (Auto) 87.2 % 05/05/24 18:20 Lymph % (Auto) 7.2 % 05/05/24 18:20 [place] % (Auto) 3.9 % 05/05/24 18:20 Eos % (Auto) 1.2 % 05/05/24 18:20 Baso % (Auto) 0.2 % 05/05/24 18:20 Neut # (Auto) 12.21 10^3/uL (1.8-8.0) H 05/05/24 18:20 Lymph # (Auto) 1.0 10^3/uL (1.5-6.5) L 05/05/24 18:20 [place] # (Auto) 0.6 10^3/uL (0.2-0.9) 05/05/24 18:20 Eos # (Auto) 0.2 10^3/uL (0.0-0.8) 05/05/24 18:20 Baso # (Auto) 0.0 10^3/uL (0.0-0.1) 05/05/24 18:20 Nucleated RBC % (auto) 0 % 05/05/24 18:20 Nucleated RBCs # 0.0 /100WBC 05/05/24 18:20 Sodium 138 mmol/L (136-145) 05/05/24 18:20 Potassium 4.4 mmol/L (3.5-5.1) 05/05/24 18:20 Chloride 103 mmol/L (98-107) 05/05/24 18:20 Carbon Dioxide 21 mmol/L (22-29) L 05/05/24 18:20 Anion Gap 18.4 (5-19) 05/05/24 18:20 BUN 10 mg/dL (6-20) 05/05/24 18:20 Creatinine 0.8 mg/dL (0.5-0.9) 05/05/24 18:20 GFR Calculation 91.4 mL/min (90-130) 05/05/24 18:20 Glucose 135 mg/dL (65-115) H 05/05/24 18:20 Calculated Osmolality 287 mOsm/kg (285-295) 05/05/24 18:20 Calcium 9.5 mg/dL (8.5-10.5) 05/05/24 18:20 Magnesium 2.0 mg/dL (1.7-2.3) 05/05/24 18:20 Total Bilirubin 0.9 mg/dL (0.15-1.2) 05/05/24 18:20 AST 23 U/L (0-32) 05/05/24 18:20 ALT 12 U/L (0-33) 05/05/24 18:20 Alkaline Phosphatase 77 U/L (35-105) 05/05/24 18:20 Total Protein 8.0 g/dL (6.6-8.7) 05/05/24 18:20 Albumin 4.7 g/dL (3.5-5.2) 05/05/24 18:20 Globulin 3.3 g/dL (1.3-4.6) 05/05/24 18:20 Lipase 20 U/L (13-60) 05/05/24 18:20 HCG, Qual Negative (Negative) 05/05/24 18:04 Urine Color Yellow (Yellow) 05/05/24 18:04 Urine Appearance Clear (CLEAR) 05/05/24 18:04 Urine pH 5.5 (5-7) 05/05/24 18:04 Ur Specific [place] 1.021 (1.005-1.030) 05/05/24 18:04 Urine Protein Negative (Negative) 05/05/24 18:04 Urine Glucose (UA) Negative (Normal) 05/05/24 18:04 Urine Ketones 1+ (Negative) H 05/05/24 18:04 Urine Blood Negative (Negative) 05/05/24 18:04 Urine Nitrate Negative (Negative) 05/05/24 18:04 Urine Bilirubin Negative (Negative) 05/05/24 18:04 Urine Urobilinogen 1.0 mg/dL (Negative) 05/05/24 18:04 Ur Leukocyte Esterase Negative (Negative) 05/05/24 18:04 Urine RBC 0-2 /hpf (0-2) 05/05/24 18:04 Urine WBC 0-5 /hpf (0-5) 05/05/24 18:04 Ur Squamous Epith Cells 0-5 /hpf (0-5) 05/05/24 18:04 Amorphous Sediment Not Reportable 05/05/24 18:04 Urine Bacteria None seen /hpf (NONE) 05/05/24 18:04 Hyaline Casts 1.65 /lpf 05/05/24 18:04 C. difficile (PCR) Negative (Negative) 05/05/24 20:18 All radiology interpretation(s) finalized by discharge Discharge Plan Discharge Patient Disposition: Home Clinical Impression: Gastroenteritis Condition: Stable Prescriptions: New ondansetron HCl 4 mg tablet 4 mg PO Q8H PRN (Reason: nausea and vomiting) Qty: 14 0RF metronidazole 500 mg tablet 500 mg PO Q8H Qty: 30 0RF ciprofloxacin HCl 500 mg tablet 500 mg PO Q12H Qty: 20 0RF No Action prenat.vits,eloina,[id number] Tablet 1 tab PO DAILY levonorgestrel-ethinyl estrad [Kurvelo (28)] 0.15-0.03 mg tablet See Rx Instructions PO .COMPLEX Qty: 84 3RF Rx Instructions: take 1 tablet daily following the order on blister card(s) PO Discharge Orders: Discharge ED (Routine); Ordered 05/05/24 Ordered By: Julián Barnes Referrals: Rikki Mccauley MD [Primary Care Provider] - 1 week Patient Instructions: Gastroenteritis (ED) Activity Restrictions/Additional Instructions: Who prescribed 2 antibiotics and 1 antinausea medicine. Please pick them up at the pharmacy and take them as directed. Please push plenty of fluids to prevent dehydration. Please follow-up with your primary care physician within the next 7 days for further evaluation treatment as needed. Coding Level of Care Code ED Wet Washer Machine for Fanny Swann
[2024-05-05 20:19] VITALS: BP 99/67; PULSE 121; RESP 26; O2SAT 100
[2024-05-05 21:42] LABS: C.Diff PCR (Lab) NEGATIVE (Negative)
[2024-05-05 22:11] VITALS: BP 99/62; PULSE 113; RESP 16; O2SAT 97
[2024-05-05] MEDS: ciprofloxacin 500 mg Tablet PO (22:33)
[2024-05-05] MEDS: metroNIDAZOLE 500 MG Tablet PO (22:33)
[2024-05-05 22:34] VITALS: BP 93/59; PULSE 130; RESP 16; O2SAT 99
== END 2024-05-05 22:39 | disposition home or self-care (01) ==
PROVIDERS: Emergency Provider Emergency Medicine; PCP Family Medicine
DX: K52.9 Noninfective gastroenteritis and colitis, unspecified (principal)
CPT/HCPCS: 80053; 81001; 81025; 82274; 83630; 83690; 83735; 85025; 87045; 87177; 87209; 87427; 87449; 87493; 96374; 99284; J2405

== ENCOUNTER 2024-08-03 15:30 | Emergency (ER) | payer OTHER, SELFPAY ==
[2024-08-03 15:37] VITALS: BP 101/68; PULSE 108; RESP 16; TEMP 36.7; O2SAT 99; BMI 18.7
--- NOTE | 2024-08-03 16:33 | CTR_ITS ---
PROCEDURE INFORMATION: Exam: CT Abdomen And Pelvis With Contrast Exam date and time: 08/03/2024 6:02 PM Age: 18 years old Clinical indication: Abdominal pain; Flank; Right lower quadrant (rlq); Additional info: Rlq pain TECHNIQUE: Imaging protocol: Computed tomography of the abdomen and pelvis with contrast. Radiation optimization: All CT scans at this facility use at least one of these dose optimization techniques: automated exposure control; mA and/or kV adjustment per patient size (includes targeted exams where dose is matched to clinical indication); or iterative reconstruction. Contrast material: OMNI 350; Contrast volume: 100 ml; Contrast route: INTRAVENOUS (IV); COMPARISON: US OB lm w fetalBPP woNST umb 07/27/2023 6:29 AM RADIATION DOSE METRICS: Total DLP (mGy-cm): 316.13 FINDINGS: Liver: Normal. No mass. Gallbladder and biliary ducts: Normal. No calcified stones. No ductal dilation. Pancreas: Normal. No ductal dilation. Spleen: Normal. No splenomegaly. Adrenal glands: Normal. No mass. Kidneys and ureters: Normal. No hydronephrosis. Stomach and bowel: Unremarkable. No obstruction. No mucosal thickening. Appendix: The appendix appears to be normal in caliber (series 3, image 56 and series 5, image 26). Intraperitoneal space: Unremarkable. No free air. No significant fluid collection. Vasculature: Unremarkable. No abdominal aortic aneurysm. Lymph nodes: Unremarkable. No enlarged lymph nodes. Urinary bladder: Unremarkable as visualized. Reproductive: Mildly prominent periuterine vasculature bilaterally. Bones/joints: Unremarkable. No acute fracture. Soft tissues: Unremarkable. CT/CT abdomen pelvis w con* [id number] IMPRESSION: 1. No acute findings in the abdomen/pelvis. Specifically, no evidence to suggest acute appendicitis. 2. Mildly prominent periuterine vasculature can be seen with pelvic congestion syndrome.
--- NOTE | 2024-08-03 16:34 | W.ED.ABDPA2 ---
HPI - Abdominal Pain General: Chief Complaint: Abdominal Pain Stated Complaint: urgent care sent, abd pain, n/v Time Seen by Provider: 08/03/24 16:30 Source: patient Mode of arrival: ambulatory Limitations: no limitations History of Present Illness: 18-year-old female states been having right flank and abdominal pain off and on for last month states has gotten much worse today states that sharp pain that starts in her back radiates to right lower quadrant. She had some nausea she denies any vomiting she denies any dysuria or vaginal discharge she denies any worse improving factors pain is currently an 8 out of 10. Associated Symptoms: Reports nausea; Denies chills, diarrhea, dysuria, fever(s) and vomiting Related Data Date of Last Menstrual Period: 07/30/24 Home Medications ?Medication ?Instructions ?Recorded ?Confirmed prenat.vits,eloina,[id number]-rcoh-[id number] 1 tab PO DAILY 01/02/23 08/03/24 Previous Rx's ?Medication ?Instructions ?Recorded levonorgestrel 0.15 mg-ethinyl See Rx Instructions PO .COMPLEX 12/08/23 estradiol 0.03 mg tablet (Kurvelo #84 tabs (28)) ciprofloxacin HCl 500 mg tablet 500 mg PO Q12H #20 tabs 05/05/24 metronidazole 500 mg tablet 500 mg PO Q8H #30 tabs 05/05/24 ondansetron HCl 4 mg tablet 4 mg PO Q8H PRN nausea and 05/05/24 vomiting #14 tabs naproxen 500 mg tablet (Naprosyn) 500 mg PO BID PRN pain #20 tabs 08/03/24 ondansetron 4 mg disintegrating 4 mg PO Q6H PRN nausea and 08/03/24 tablet vomiting #14 tabs Allergies Allergy/AdvReac Type Severity Reaction Status Date / Time guaifenesin (From Robitussin Allergy Intermediate ADR-rash Verified 08/03/24 15:41 A-C) Review of Systems Const: Denies: fever(s), chills, body aches or change in appetite ENMT: Denies: throat pain or dental pain Card: Denies: chest pain Resp: Denies: dyspnea GI: Reports: abdominal pain and nausea; Denies: vomiting or diarrhea : Denies: dysuria Musc: Denies: neck pain or back pain Skin/Breast: Denies: rash Neuro: Denies: headache(s) PFSH ED PFSH: Medical History Healthy adult Surgical History No pertinent past surgical history Family History Mother Asthma PCOS (polycystic ovarian syndrome) Allergy to alpha-gal Father Hypertension Grandfather Kidney stones Social History Smoking and tobacco/nicotine status: never used tobacco/nicotine Alcohol intake: never Substance/Drug Use: never Household members: family Current occupation: Works at [employer] Female Reproductive History: Date of last menstrual period: 07/30/24 Physical Exam Const: COMMON NORMALS: no acute distress, patient oriented x3 and healthy appearing HENMT: COMMON NORMALS: normocephalic and atraumatic HEAD & SCALP: normocephalic and atraumatic Eye: COMMON NORMALS: conjunctivae normal CONJUNCTIVA: Yes conjunctivae normal Neck/C-Spine: COMMON NORMALS: full ROM and supple Chest: COMMONS NORMALS: normal inspection of the chest and normal palpation of entire chest wall Resp: COMMON NORMALS: normal respiratory effort, No retractions, No use of accessory muscles and clear to auscultation bilaterally AUSCULTATION: clear to auscultation bilaterally Cardio: COMMON NORMALS: regular rate, regular rhythm and No murmurs present (Cardio) RATE: regular rate RHYTHM: regular rhythm GI: COMMON NORMALS: Normal to inspection, nondistended, normoactive bowel sounds present, Soft to palpation and no masses PALPATION: Yes Soft to palpation OTHER: right flank and rlq tenderness Extremity: COMMON NORMALS: normal to inspection and full ROM Neuro: COMMON NORMALS: patient oriented x3, moves all extremities and no focal motor deficits Psych: COMMON NORMALS: mental status grossly normal, Normal thought process present and cooperative THOUGHT PROCESS: Normal thought process present Skin: COMMON NORMALS: no rashes or lesions noted and no wounds GENERAL SKIN EXAM: no rashes or lesions noted Course Vital Signs: Vital signs: Vital Signs Temperature 98.1 F 08/03/24 15:37 Pulse Rate 104 H 08/03/24 18:47 Respiratory Rate 16 03/12/25 15:37 Blood Pressure 97/56 08/03/24 18:47 Pulse Oximetry 98 08/03/24 18:47 Oxygen Delivery Me thod Room Air 08/03/24 15:37 MDM - Abdominal Pain Medical Decision Making Patient presents here with abdominal pain her CT scan showed no acute finding did show possible pelvic congestion her blood work here is normal she has an appoint with her PCP on Thursday she is to follow-up as scheduled she is stable for discharge return if worsening. Medical Records I reviewed the patient's medical records. Lab Data I reviewed the patient's lab results. 08/03/24 16:46 08/03/24 16:46 Labs/Radiology: Radiology Impressions Abdomen/Pelvis CT 08/03/24 16:33 IMPRESSION: 1. No acute findings in the abdomen/pelvis. Specifically, no evidence to suggest acute appendicitis. 2. Mildly prominent periuterine vasculature can be seen with pelvic congestion syndrome. Laboratory Results WBC 11.09 10^3/uL (4.5-13.0) 08/03/24 16:46 RBC 4.54 10^6/uL (3.85-5.65) 08/03/24 16:46 Hgb 13.10 g/dL (12.4-14.8) 08/03/24 16:46 Hct 39.4 % (36-47) 08/03/24 16:46 MCV 86.8 fl (85-98) 08/03/24 16:46 MCH 28.9 pg (27-33) 08/03/24 16:46 MCHC 33.2 g/dL (30-55) 08/03/24 16:46 RDW 12.3 % (12.1-15.1) 08/03/24 16:46 Plt Count 347 10^3/cmm (157-399) 08/03/24 16:46 MPV 8.6 fL (7.4-10.4) 08/03/24 16:46 Neut % (Auto) 89.0 % 08/03/24 16:46 Lymph % (Auto) 4.8 % 08/03/24 16:46 [place] % (Auto) 5.5 % 08/03/24 16:46 Eos % (Auto) 0.0 % 08/03/24 16:46 Baso % (Auto) 0.2 % 08/03/24 16:46 Neut # (Auto) 9.88 10^3/uL (1.8-8.0) H 08/03/24 16:46 Lymph # (Auto) 0.5 10^3/uL (1.5-6.5) L 08/03/24 16:46 [place] # (Auto) 0.6 10^3/uL (0.2-0.9) 08/03/24 16:46 Eos # (Auto) 0.0 10^3/uL (0.0-0.8) 08/03/24 16:46 Baso # (Auto) 0.0 10^3/uL (0.0-0.1) 08/03/24 16:46 Nucleated RBC % (auto) 0 % 08/03/24 16:46 Nucleated RBCs # 0.0 /100WBC 08/03/24 16:46 Sodium 134 mmol/L (136-145) L 08/03/24 16:46 Potassium 3.2 mmol/L (3.5-5.1) L 08/03/24 16:46 Chloride 99 mmol/L (98-107) 08/03/24 16:46 Carbon Dioxide 23 mmol/L (22-29) 08/03/24 16:46 Anion Gap 15.2 (5-19) 08/03/24 16:46 BUN 13 mg/dL (6-20) 08/03/24 16:46 Creatinine 0.7 mg/dL (0.5-0.9) 08/03/24 16:46 GFR Calculation 106.7 mL/min (90-130) 08/03/24 16:46 Glucose 113 mg/dL (65-115) 08/03/24 16:46 Calculated Osmolality 279 mOsm/kg (285-295) L 08/03/24 16:46 Calcium 9.2 mg/dL (8.5-10.5) 08/03/24 16:46 Total Bilirubin 1.1 mg/dL (0.15-1.2) 08/03/24 16:46 AST 14 U/L (0-32) 08/03/24 16:46 ALT 9 U/L (0-33) 08/03/24 16:46 Alkaline Phosphatase 86 U/L (35-105) 08/03/24 16:46 Total Protein 7.6 g/dL (6.6-8.7) 08/03/24 16:46 Albumin 5.0 g/dL (3.5-5.2) 08/03/24 16:46 Globulin 2.6 g/dL (1.3-4.6) 08/03/24 16:46 Lipase 22 U/L (13-60) 08/03/24 16:46 HCG, Qual Negative (Negative) 08/03/24 16:46 Urine Color [place] (Yellow) A 08/03/24 16:49 Urine Appearance Clear (CLEAR) 08/03/24 16:49 Urine pH 6.0 (5-7) 08/03/24 16:49 Ur Specific [place] 1.031 (1.005-1.030) H 08/03/24 16:49 Urine Protein Trace (Negative) A 08/03/24 16:49 Urine Glucose (UA) Negative (Normal) 08/03/24 16:49 Urine Ketones Trace (Negative) 08/03/24 16:49 Urine Blood Negative (Negative) 08/03/24 16:49 Urine Nitrate Negative (Negative) 08/03/24 16:49 Urine Bilirubin Negative (Negative) 08/03/24 16:49 Urine Urobilinogen 1.0 mg/dL (Negative) 08/03/24 16:49 Ur Leukocyte Esterase Negative (Negative) 08/03/24 16:49 Urine RBC 0-2 /hpf (0-2) 08/03/24 16:49 Urine WBC 0-5 /hpf (0-5) 08/03/24 16:49 Ur Squamous Epith Cells 0-5 /hpf (0-5) 08/03/24 16:49 Amorphous Sediment Not Reportable 08/03/24 16:49 Urine Bacteria None seen /hpf (NONE) 08/03/24 16:49 Hyaline Casts 1.21 /lpf 08/03/24 16:49 All radiology interpretation(s) finalized by discharge Discharge Plan Discharge Patient Disposition: Home Clinical Impression: Abdominal pain Condition: Stable Prescriptions: New ondansetron 4 mg tablet,disintegrating 4 mg PO Q6H PRN (Reason: nausea and vomiting) Qty: 14 0RF naproxen [Naprosyn] 500 mg tablet 500 mg PO BID PRN (Reason: pain) Qty: 20 0RF No Action prenat.vits,eloina,[id number] Tablet 1 tab PO DAILY levonorgestrel-ethinyl estrad [Kurvelo (28)] 0.15-0.03 mg tablet See Rx Instructions PO .COMPLEX Qty: 84 3RF Rx Instructions: take 1 tablet daily following the order on blister card(s) PO ondansetron HCl 4 mg tablet 4 mg PO Q8H PRN (Reason: nausea and vomiting) Qty: 14 0RF metronidazole 500 mg tablet 500 mg PO Q8H Qty: 30 0RF ciprofloxacin HCl 500 mg tablet 500 mg PO Q12H Qty: 20 0RF Discharge Orders: Discharge ED (Routine); Ordered 08/03/24 Ordered By: Rona Fox Referrals: Rikki Mccauley MD [Primary Care Provider] - 4-7 days Discharge Diet: Advance as tolerated Discharge Activity: Resume usual activity Patient Instructions: Abdominal Pain (ED) Print Language: Norwegian Coding Level of Care Code ED [employer] for [employer] Swann
[2024-08-03] MEDS: morphine 4 mg/mL SDV 1 mL IVP (17:03)
[2024-08-03] MEDS: ondansetron 2 mg/ML SDV 2 mL 4 MG IVP (17:04)
[2024-08-03 17:14] LABS: Bilirubin Urine Negative (Negative); Blood Urine Negative (Negative); Glucose Urine UA Negative (Normal); Ketones Urine Trace (Negative); Leukocyte Esterase Urine Negative (Negative); Nitrate Urine Negative (Negative); Protein Urine Trace (Negative); Urine Appearance Clear (CLEAR)
[2024-08-03 17:16] LABS: Basophils % 0.2 %; Hematocrit 39.4 % (36-47); Lymphocytes # 0.5 10^3/uL (1.5-6.5); Lymphocytes % 4.8 %; Mean Corpuscular HGB Conc 33.2 g/dL (30-55); Mean Corpuscular Hemoglobin 28.9 pg (27-33); Mean Corpuscular Volume 86.8 fl (85-98); Mean Platelet Volume 8.6 fL (7.4-10.4); Monocytes # 0.6 10^3/uL (0.2-0.9); Monocytes % 5.5 %; Neutrophils # 9.88 10^3/uL (1.8-8.0); Nucleated Red Blood Cells % 0 %; Platelet Count 347 10^3/cmm (157-399); Red Blood Count 4.54 10^6/uL (3.85-5.65); Red Cell Distribution Width 12.3 % (12.1-15.1); White Blood Count 11.09 10^3/uL (4.5-13.0)
[2024-08-03 17:17] LABS: Add Urine Microscopic? YES; Bacteria Urine None Seen /hpf; Hyaline Casts Urine 1.21 /lpf; RBC Urine 0-2 /hpf (0-2); Squamous Epithelial Cell Urine 0-5 /hpf (0-5); WBC Urine 0-5 /hpf (0-5)
[2024-08-03 17:27] LABS: Add Urine Culture? No; Specific Gravity, Urine 1.031 (1.005-1.030); Urine Color Orange (Yellow)
[2024-08-03] MEDS: ketorolac 30 mg/mL INJ 15 MG IVP (17:30)
[2024-08-03 17:34] LABS: Alanine Aminotransferase 9 U/L (0-33); Alkaline Phosphatase 86 U/L (35-105); Anion Gap 15.2 (5-19); Aspartate Amino Transferase 14 U/L (0-32); Blood Urea Nitrogen 13 mg/dL (6-20); Calcium 9.2 mg/dL (8.5-10.5); Carbon Dioxide 23 mmol/L (22-29); Chloride 99 mmol/L (98-107); Creatinine Clr Calc Pharmacy 106.4459; Globulin 2.6 g/dL (1.3-4.6); Glomerular Filtration Rate 106.7 mL/min (90-130); Glucose 113 mg/dL (65-115); Lipase 22 U/L (13-60); Osmolality Calculated 279 mOsm/kg (285-295); Potassium 3.2 mmol/L (3.5-5.1); Sodium 134 mmol/L (136-145); Total Bilirubin 1.1 mg/dL (0.15-1.2); Total Protein 7.6 g/dL (6.6-8.7)
[2024-08-03 17:39] LABS: HCG, Serum Qual Negative (Negative)
[2024-08-03] MEDS: iohexol 350 mg/mL 500 mL Btl (per mL) IV (18:11)
[2024-08-03 18:47] VITALS: BP 97/56; PULSE 104; O2SAT 98
[2024-08-03 19:14] VITALS: BP 105/55; PULSE 98; O2SAT 98
== END 2024-08-03 19:10 | disposition home or self-care (01) ==
PROVIDERS: Emergency Provider Emergency Medicine; PCP Family Medicine
DX: R10.9 Unspecified abdominal pain (principal)
CPT/HCPCS: 74177; 80053; 81001; 83690; 84703; 85025; 96374; 96375; 99285; J1885; J2270; J2405

== ENCOUNTER → 2024-12-24 18:52 | Outpatient (BNVA) | payer OTHER, SELFPAY | PROVIDERS: PCP Family Medicine; Visit Provider Emergency Medicine | DX: N92.6 Irregular menstruation, unspecified (principal) | CPT/HCPCS: 81025; 84702 ==

== ENCOUNTER 2025-03-02 13:25 | Outpatient (CLI) | payer OTHER, SELFPAY ==
--- NOTE | 2025-03-02 13:35 | US_ITS ---
WS: [id number] ULTRASOUND BREAST BILATERAL TECHNIQUE: Ultrasound bilateral breast focused area of concern. CLINICAL INFORMATION: MASS OF BREAST COMPARISON: None. FINDINGS: RIGHT BREAST: Ultrasound RIGHT breast area of concerns at the 6:00 10:00 and 3:00 positions 1 cm from the nipple. Dense underlying parenchymal tissue. No cystic or solid lesions. No suspicious findings. LEFT BREAST: Ultrasound LEFT breast at the 3:00 6:00 positions 1 cm from the nipple. Dense underlying parenchymal tissue. No suspicious cystic or solid lesions. Findings are benign. US/US breast BI limited* [id number] IMPRESSION: BI-RADS 2 benign Recommend annual screening mammography age 40
== END 2025-03-02 13:26 | disposition home or self-care (01) ==
LOC: RAD 13:29
PROVIDERS: PCP Family Medicine; Visit Provider Nurse Practitioner Family
DX: N63.15 Unspecified lump in the right breast, overlapping quadrants (principal); D24.2 Benign neoplasm of left breast
CPT/HCPCS: 76642

== ENCOUNTER → 2025-03-06 13:26 | Outpatient (BNVA) | payer OTHER, SELFPAY | PROVIDERS: PCP Family Medicine; Visit Provider Nurse Practitioner Women's Health | DX: Z12.4 Encounter for screening for malignant neoplasm of cervix (principal) | CPT/HCPCS: 87624 ==

== ENCOUNTER → 2025-05-01 10:37 | Outpatient (BNVA) | payer OTHER, SELFPAY | PROVIDERS: PCP Family Medicine; Visit Provider Nurse Practitioner Women's Health | DX: N97.8 Female infertility of other origin (principal); R53.83 Other fatigue | CPT/HCPCS: 82306; 84144 ==